=== PATIENT | female | born 1945 | race Caucasian/White ===

== ENCOUNTER → 2021-07-21 | Day surgery (SDC) | payer MEDICARE ==
--- NOTE | 2021-07-21 11:11 | RAD REPORT ---
EXAM DESCRIPTION: Ultrasound-guided vacuum assisted right breast core biopsy CLINICAL HISTORY: Breast mass N63.0 COMPARISON: No comparisons FINDINGS: Informed consent was obtained and time-out was performed. The patient's right breast was prepped and draped in the usual sterile fashion. 1% lidocaine was used for local anesthetic purposes. Utilizing aseptic technique and ultrasound guidance, a 12 gauge vacuum assisted core biopsy device wa s used to obtain 2 core specimens through the mass of interest upper outer quadrant right breast. A p ost biopsy clip was then placed. All collected material was sent for cytology. Patient tolerated procedure well. IMPRESSION: Successful ultrasound guided vacuum assisted right breast mass biopsy.
== END ==
LOC: DS 09:00
PROVIDERS: ATTEND Family Medicine
DX: C50.411 Malignant neoplasm of upper-outer quadrant of right female breast (principal); Z17.0 Estrogen receptor positive status [ER+]
CPT/HCPCS: 19083; 88305

== ENCOUNTER 2021-08-05 06:25 | Day surgery (SDC) | payer MEDICARE ==
[2021-08-03 11:01] LABS: Absolute Lymphocytes (CBC) 1.2 K/uL (0.7-4.9); Hematocrit 38.8 % (36.0-45.0); Lymphocytes % 27.3 % (15.3-44.8); MPV 9.3 fL (7.6-11.3); RBC Red Blood Cell Count 4.15 M/uL (3.86-4.86)
--- NOTE | 2021-08-03 11:04 | RAD REPORT ---
EXAM DESCRIPTION: Jean Claude Suarez And Arlyn (2 Views)08/03/2021 10:58 am CLINICAL HISTORY: Breast cancer/preop COMPARISON: None FINDINGS: The lungs appear clear of acute infiltrate. The heart is normal size IMPRESSION: No acute abnormalities displayed
[2021-08-03 11:16] LABS: Potassium 4.2 mmol/L (3.5-5.1)
--- NOTE | 2021-08-03 13:44 | EKG ---
Test Date: 2021-08-03 Test Time: 09:37:14 [employer]: ARLEN MEASUREMENT RESULTS: Intervals: Rate: 70 KS: 158 QRSD: 74 QT: 406 QTc: 438 [place]: P: 45 KS: 158 QRS: 52 T: 60 INTERPRETIVE STATEMENTS: Normal sinus rhythm Normal ECG No previous ECG available for comparison Electronically Signed On 08-03-21 13:44:04 CDT by Carlitos Michelle
[2021-08-05] MEDS ORDERED: NA CHLORIDE 0.9% 1,000 ML ONE ×2 (06:36→11:27)
[2021-08-05] MEDS ORDERED: NA CHLORIDE 0.9% 50 ML ONE (06:41)
[2021-08-05] MEDS ORDERED: CEFAZOLIN SODIUM 1 GM/VIAL ONE (06:41)
--- NOTE | 2021-08-05 10:32 | RAD REPORT ---
EXAM DESCRIPTION: NM - Lymphoscintigraphy - 08/05/2021 8:15 am CLINICAL HISTORY: Breast cancer TECHNIQUE: 125 microcuries Lymphoseek administered into the medial subcutaneous tissue periareolar r egion of the breast. An additional 125 microcuries Lymphoseek administered into the lateral subcutane ous tissues periareolar region of the breast Subsequently a scintigram was obtained which demonstrated the radiotracer within these locations. IMPRESSION: Right breast lymphoscintigram
[2021-08-05] MEDS ORDERED: METHYLENE BLUE 0.5% 10 ML AMP ONE (10:47)
[2021-08-05] MEDS ORDERED: MIDAZOLAM HCL 2 MG/2 ML INJ ONE (10:47)
[2021-08-05] MEDS ORDERED: FENTANYL CITR 100 MCG/2 ML ONE (10:47)
[2021-08-05] MEDS ORDERED: LIDOCAINE 1% MPF 5 ML VIAL ONE ×2 (10:47→10:50)
[2021-08-05] MEDS ORDERED: HYDROMORPHONE HCL 1 MG/ML INJ ONE (10:47)
[2021-08-05] MEDS ORDERED: dexAMETHasone 10 MG/ML VIAL ONE (10:47)
[2021-08-05] MEDS ORDERED: SODIUM BICARB 50 MEQ/50ML VIAL ONE (10:47)
[2021-08-05] MEDS ORDERED: EPINEPHRINE/PF 1 MG/ML AMP ONE (10:47)
[2021-08-05] MEDS ORDERED: propofoL 200 MG/20 ML VIAL IV ONE (10:50)
[2021-08-05] MEDS ORDERED: KETOROLAC 30 MG/ML INJ ONE (10:56)
[2021-08-05] MEDS ORDERED: dexAMETHasone 4 MG/ML VIAL ONE (10:57)
[2021-08-05] MEDS ORDERED: ONDANSETRON 4 MG/2 ML VIAL ONE (10:57)
[2021-08-05] MEDS ORDERED: HYDROCODONE/APAP 7.5/325 MG TAB PO ONE (12:15)
[2021-08-05] MEDS ORDERED: CODEINE 30MG/APAP 300MG TAB ONE (13:38)
[2021-08-05 14:38] VITALS: BP 140/62; O2SAT 98
[2021-08-05 14:39] VITALS: TEMP 98
== END 2021-08-05 13:50 | disposition home or self-care (01) ==
LOC: OR 06:25
PROVIDERS: ATTEND Surgery
PROC: 0HTT0ZZ Resection of Right Breast, Open Approach (ICD-10-PCS; principal; 2021-08-05 09:30)
PROC: 07B50ZX Excision of Right Axillary Lymphatic, Open Approach, Diagnostic (ICD-10-PCS; 2021-08-05 09:30)
DX: C50.411 Malignant neoplasm of upper-outer quadrant of right female breast (principal); Z17.0 Estrogen receptor positive status [ER+]; C77.3 Secondary and unspecified malignant neoplasm of axilla and upper limb lymph nodes; Z20.822 Contact with and (suspected) exposure to COVID-19
CPT/HCPCS: 19307; 93005; 85025; 80048; 36415; 82947; 88307; 71046; 78195; U0003; J2704; J1100 ×2; J0171; J2250; J3010; J1170; J7030 ×2; J2405; J0690; A9520